=== PATIENT | female | born 1995 | race Caucasian/White ===

== ENCOUNTER 2021-01-02 09:03 | Inpatient (IN) | payer OTHER, SELFPAY ==
[2021-01-02] VITALS (39 sets, daily range): BP systolic 97–131; BP diastolic 57–112; PULSE 68–123; RESP 16–18; TEMP 36.3–37.1; O2SAT 97–100; BMI 25.9
--- NOTE | 2021-01-02 06:28 | WPDHPUPDATE1 ---
History and Physical Update Update Date/Time: 01/02/21 06:28 History and Physical has been reviewed, including an updated exam of the patient. There are NO changes in the patient's condition. Risks, benefits, and alternatives have been discussed and questions answered. Patient agrees to proceed with procedure. 25 yo F presents for IOL at 40weeks. complicated by rubella non-immune, trichomoniasis, and anemia. IOL scheduled for low-dose Pitocin. explained her condition procedure and risks involved including maternal or risk of delivery with risks including but not limited to bleeding infection injury to bladder bowel baby pelvic vessels DVT pneumonia wound infection UTI the risk of anesthesia risk of hemorrhage and risk of shoulder dystocia. She understands accepts and agrees to proceed
--- NOTE | 2021-01-02 06:31 | WPDOBADMIT ---
Obstetrics - Admit Note Admission Note: record reviewed. No pertinent additions to the history and/or any subsequent changes in the physical findings that are not consistent with the expected course of the were found. Additions to the history and/or subsequent changes in the physical findings follow. None. 25 yo F presents for IOL at 40weeks. complicated by rubella non-immune, trichomoniasis, and anemia. IOL scheduled for low-dose Pitocin. explained her condition procedure and risks involved including maternal or risk of delivery with risks including but not limited to bleeding infection injury to bladder bowel baby pelvic vessels DVT pneumonia wound infection UTI the risk of anesthesia risk of hemorrhage and risk of shoulder dystocia. She understands accepts and agrees to proceed
--- NOTE | 2021-01-02 06:31 | PM.IMHP ---
H&P: HPI History of Present Illness Date/Time: 01/02/21 06:31 25 yo F presents for IOL at 40weeks. complicated by rubella non-immune, trichomoniasis, and anemia. IOL scheduled for low-dose Pitocin. explained her condition procedure and risks involved including maternal or risk of delivery with risks including but not limited to bleeding infection injury to bladder bowel baby pelvic vessels DVT pneumonia wound infection UTI the risk of anesthesia risk of hemorrhage and risk of shoulder dystocia. She understands accepts and agrees to proceed Chief Complaint: term , elective induction of labor Review of Systems Review of Systems: All systems reviewed & are unremarkable except as noted in HPI and below Constitutional: Constitutional: Reports no additional constitutional complaints Eyes: Eyes: Reports no additional eye complaints ENT: Reports system reviewed and no additional complaints, except as documented Cardiovascular: Cardiovascular: Reports no additional cardiovascular complaints Respiratory: Respiratory: Reports no additional respiratory complaints Gastrointestinal: Gastrointestinal: Reports no additional gastrointestinal complaints Genitourinary: Genitourinary: Reports no additional female genitourinary complaints Musculoskeletal: Musculoskeletal: Reports no additional musculoskeletal complaints Integumentary/Breasts: Skin/Breast: Reports system reviewed and no additional complaints, except as docu Neurologic: Reports system reviewed and no additional complaints, except as documented Psychiatric: Psychiatric: Reports no additional psychiatric complaints Endocrine: Endocrine: Reports no additional endocrine complaints Hematologic/Lymphatic: Hematologic/Lymphatic: Reports no additional hematologic/lymphatic complaints Allergic/Immunologic: Allergic/Immunologic: Reports no additional allergic/immunologic complaints [facility] Past Medical History Medical History (Updated 01/02/21 @ 06:38 by Dimitri Cooper MD) Bacterial vaginosis Rubella non-immune status, antepartum Term Trichomonal vaginitis Vaginal delivery 02-15-2018, 38.5 wks 1. 7lbs 12oz, Vaginal Vaginal delivery 01-31-2019, 38.1 wks 1. F, 7lbs 3oz, Vaginal Family History Family History (Updated 12/03/20 @ 12:31 by Jina Rasmussen RN) Other Unknown family medical history Social History Social History (Updated 01/02/21 @ 06:39 by Dimitri Cooper MD) Smoking status: Never smoker Alcohol intake: never Substance use: former Substance use type: does not use Living arrangements: with family Occupation/Education: unemployed Gender identity (if verbalized by the patient): Female Sexual Orientation (if Verbalized by the Patient): Straight or Heterosexual Spiritual care concerns: No Agree to blood products: Yes Meds Home Medications and Allergies Home Medications Medication Instructions Recorded Confirmed Type prenat.vits,dann,tvb-gcjm-lipzx 1 tablet PO DAILY 12/03/20 12/03/20 History [ #2] Allergies Allergy/AdvReac Type Severity Reaction Status Date / Time No Known Allergies Allergy Verified 12/03/20 12:30 Exam Const: General: cooperative, healthy appearing, comfortable, no acute distress, well developed, alert, awake and Physically active Nutritional Appearance: average body habitus Orientation/consciousness: patient oriented x3 Limitations: no limitations HENMT: Head: normal to inspection Eyes: General: appearance normal, both eyes and all related structures Neck: Neck: normal visual inspection and full ROM Chest: Chest palpation & inspection: normal inspection of the chest Breast/axilla inspection: normal inspection of the breasts Resp: Effort & Inspection: normal respiratory effort Auscultation: clear to auscultation bilaterally Cardio: Rate: regular rate Rhythm: regular rhythm Heart sounds: S1 normal heart so
--- NOTE | 2021-01-02 09:48 | LDADM ---
This patient, Angie Arreola, was admitted to Labor/Delivery/Recovery 108 on 01/02/21 at 09:03. Plans for labor, pain management and were discussed with patient. Patient/family oriented to hospital policies and general routines including ID bracelet, bed and alarms, visiting hours, pain management, procedures, bathroom and other care routines, personal items, smoking policy, room service/diet and guest tray routines, infant security routines, and visiting hours. Patient/Family are encouraged to report perceived risks to care and to ask questions if they do not understand what they are told or what they should do. See OBIX for further documentation.
[2021-01-02 10:07] LABS: Basophils Percent Auto 0.3 % (0.2-1.2); Eosinophils Absolute Auto 0.1 K/mm3 (0-0.3); Hematocrit 28.5 % (37.0-47.0); Hemoglobin 8.5 g/dL (12.0-15.0); Immature Granulocyte Absolute 0.18 K/mm3 (0.00-0.031); Immature Granulocyte Percent A 2.5 % (0-0.5); Lymphocytes Absolute Auto 1.93 K/mm3 (0.9-3.2); Lymphocytes Percent Auto 26.3 % (18.3-44.2); Mean Corpuscular HGB Conc 29.8 g/dl (32-36); Mean Corpuscular Hemoglobin 21.2 pg (26-34); Mean Corpuscular Volume 71.1 fl (80-100); Mean Platelet Volume 10.6 fl (7.4-10.4); Monocytes Absolute Auto 0.5 K/mm3 (0.1-0.6); Monocytes Percent Auto 6.3 % (2.6-8.5); Neutrophils Absolute Auto 4.7 K/mm3 (1.3-6.7); Neutrophils Percent Auto 63.6 % (45.5-73.1); Nucleated Red Blood Cells Perc 0.5 % (0.0-0.2); Platelet Count Result 216 k/mm3 (150-375); Red Blood Count 4.01 M/mm3 (4.2-5.4); Red Cell Distribution Width 17.6 % (11.5-14.5); White Blood Count 7.3 K/mm3 (4.5-10.0)
[2021-01-02 10:20] LABS: Anisocytosis 1+ (NORMAL); Platelet Estimate Adequate (Adequate)
[2021-01-02 10:21] LABS: Large Platelets Present
[2021-01-02] MEDS: LACTATED RINGERS 1,000 ML 125 ML IV CONT (10:28)
[2021-01-02] MEDS: AMPICILLIN 2 GM/NS 100 ML 2 GM/100 ML BAG IVPB (10:29)
[2021-01-02] MEDS: OXYTOCIN 30 UNITS/NS 500 ML 30 UNITS/500 ML BAG IV CONT (10:31)
--- NOTE | 2021-01-02 11:10 | PM.OBPNLAB ---
Pain Control Date/time seen: 01/02/21 11:10 Pain control: tolerating well Pelvic Exam Dilation (cm): 4 Effacement (%): 70 station: -2 Amniotic membrane status: Ruptured (AROM clear af) Contractions Monitor mode: External Contraction frequency: 4 Contraction duration: 45 Contraction pattern: Regular Contraction phase: Contraction Contraction intensity: Mild Status status: Category l Assessment and Plan Pitocin rate (mU/min): 4 Assessment: induction ongoing Plan: continuous present management Comments: [place]
--- NOTE | 2021-01-02 12:43 | WPDANESEPP ---
Anes - Eval Pre Procedure Procedure: labor epidural Date/Time: 01/02/21 12:43 Surgeon: labor pain Pre Op Diagnosis: IOL Patient Data Age: 25 Gender: F Height: 1.6 m Weight: 66.5 kg Last Vital Signs Temp 36.6 C 01/02/21 11:10 Pulse 97 01/02/21 12:30 Resp 18 01/02/21 11:10 BP 116/69 01/02/21 12:30 Allergies Allergy/AdvReac Type Severity Reaction Status Date / Time No Known Allergies Allergy Verified 01/02/21 09:56 Home Medications Medication Instructions Recorded Confirmed Type prenat.vits,dann,jzr-lqgg-nlxqj 1 tablet PO DAILY 12/03/20 01/02/21 History [ #2] Laboratory Tests 01/02/21 01/02/21 01/02/21 09:31 09:31 09:31 WBC 7.3 K/mm3 K/mm3 (4.5-10.0) RBC 4.01 M/mm3 L M/mm3 (4.2-5.4) Hgb 8.5 g/dL L g/dL (12.0-15.0) Hct 28.5 % L % (37.0-47.0) MCV 71.1 fl L fl (80-100) MCH 21.2 pg L pg (26-34) MCHC 29.8 g/dl L g/dl (32-36) RDW 17.6 % H % (11.5-14.5) Plt Count 216 k/mm3 k/mm3 (150-375) MPV 10.6 fl H fl (7.4-10.4) Immature Gran % (Auto) 2.5 % H % (0-0.5) Neut % (Auto) 63.6 % % (45.5-73.1) Lymph % (Auto) 26.3 % % (18.3-44.2) [place] % (Auto) 6.3 % % (2.6-8.5) Eos % (Auto) 1.0 % % (0-4.4) Baso % (Auto) 0.3 % % (0.2-1.2) Lymph # (Auto) 1.93 K/mm3 K/mm3 (0.9-3.2) [place] # (Auto) 0.5 K/mm3 K/mm3 (0.1-0.6) Eos # (Auto) 0.1 K/mm3 K/mm3 (0-0.3) Baso # (Auto) 0.0 K/mm3 K/mm3 (0.0-0.1) Abs Immat Gran (auto) 0.18 K/mm3 H K/mm3 (0.00-0.031) Absolute Neuts (auto) 4.7 K/mm3 K/mm3 (1.3-6.7) Absolute Nucleated RBC 0.0 K/mm3 K/mm3 (0.0-0.012) Nucleated RBC % 0.5 % H % (0.0-0.2) Platelet Estimate Adequate (Adequate) Large Platelets Present Anisocytosis 1+ (NORMAL) RPR Pending Blood Type AB Positive Antibody Screen Negative Patient hx anesthesia problems: none Family hx anesthesia problems: none PMFSH Past Medical History Medical History (Updated 01/02/21 @ 06:38 by Dimitri Cooper MD) Bacterial vaginosis Rubella non-immune status, antepartum Term Trichomonal vaginitis Vaginal delivery 02-15-2018, 38.5 wks 1. 7lbs 12oz, Vaginal Vaginal delivery 01-31-2019, 38.1 wks 1. F, 7lbs 3oz, Vaginal Family History Family History Other Unknown family medical history Social History Social History (Updated 01/02/21 @ 06:39 by Dimitri Cooper MD) Smoking status: Never smoker Second hand tobacco smoke exposure: No Alcohol intake: never Substance use: former Substance use type: does not use Living arrangements: with family Occupation/Education: unemployed Gender identity (if verbalized by the patient): Female Sexual Orientation (if Verbalized by the Patient): Straight or Heterosexual Spiritual care concerns: No Agree to blood products: Yes Exam Day of Procedure 01/02/21 12:43
[2021-01-02] MEDS: AMPICILLIN 1 GM/NS 50 ML 1 GM/50 ML BAG IVPB (14:58)
--- NOTE | 2021-01-02 15:42 | PM.OBPRVD ---
OB - Delivery Note Procedure Delivery date: 01/02/21 Procedure: Normal spontaneous vertex vaginal delivery a viable female infant and placenta events: Labor Induction Intrapartal events: None Induction method: per pitocin protocol Delivery augmentation: rupture of membranes Delivery monitor: external FHT and external uterine Route of delivery: Episiotomy description: None Laceration Description: None Specimen: Yes (Placenta, cord blood gases, cord blood) Quantitative Blood Loss (ml): 100 Anesthesia type: None Disposition: floor Complications: None Narrative: Normal spontaneous vertex vaginal delivery a viable female over an intact perineum anterior shoulder delivered delivered and placed on to the anterior abdomen spontaneous respirations and cry. Cord clamped and cut handed to the nursery nurse in attendance scores 8 9 weight 8 lb 15 oz taken to the nursery in stable condition. Cord gases cord blood obtained and then placenta was delivered intact with a three-vessel cord the uterus contracted well with Pitocin given intravenously. Cervix and rectum were checked no sponges were left into the vagina the rectal sphincters intact. Blood clots removed from the intrauterine cavity. Mom and baby in stable condition in birthing room 108 Baby Date of : 01/02/21 Time of : 15:30 Weeks of gestation at delivery: 40 Infant gender: Female Weight (pounds): 8 Weight (ounces): 15 presentation: vertex position: Left Occiput Anterior Placenta delivery description: Spontaneous and Normal Configuration cord vessel description: 3 Vessels score one minute: 8 score five minutes: 9 Narrative: Normal exam normal transition taken to the nursery in stable condition
[2021-01-02] MEDS: OXYTOCIN 30 UNITS/NS 500 ML 30 UNITS/500 ML BAG 125 UNITS IV CONT (16:01)
[2021-01-02] MEDS: IBUPROFEN 600 MG TABLET PO (17:54)
--- NOTE | 2021-01-02 19:40 | OBPPTRN ---
Patient transferred to post room #289 via wheelchair. Support person present. Oriented to unit, room, information board, rooming in, admission packet and security measures. Patient verbalizes understanding.
[2021-01-02 19:57] LABS: Barbiturate Screen Urine Negative (Negative); Benzodiazepines Screen Urine Negative (Negative)
[2021-01-02 20:15] LABS: Amphetamine Screen Urine Negative (Negative); Cannabinoid Screen Urine Negative (Negative); Cocaine Screen Urine Negative (Negative); Opiate Screen Urine Negative (Negative); Phencyclidine Screen Urine Negative (Negative)
[2021-01-02 20:16] LABS: Methadone Screen Urine Negative (Negative)
[2021-01-03] MEDS: IBUPROFEN 600 MG TABLET PO ×3 (03:49→17:31)
[2021-01-03 03:54] VITALS: BP 109/65; PULSE 73; RESP 18; TEMP 36.9; O2SAT 98
[2021-01-03 04:54] LABS: Hematocrit 24.9 % (37.0-47.0); Hemoglobin 7.6 g/dL (12.0-15.0)
[2021-01-03] MEDS: MULTIVIT/MIN/PREN/FOL AC/IRON TABLET 1 TAB PO (11:31)
[2021-01-03] MEDS: POLYSACCHARIDE IRON COMPLEX 150 MG CAPSULE PO ×2 (11:32→17:28)
[2021-01-03 11:33] VITALS: BP 118/76; PULSE 85; RESP 12; TEMP 36.7; O2SAT 100
[2021-01-03] MEDS: DOCUSATE SODIUM 100 MG CAPSULE PO (17:27)
--- NOTE | 2021-01-03 18:58 | PM.OBPNVD ---
OB - PN: Subj Subjective Date/time seen: 01/03/21 18:58 Patient comments: no complaints, pain well controlled, tolerating diet and flatus present [place] baby status: doing well and nursing well feeding status: exclusively breast feeding OB - PN: Obj Data Labs CBC & Chem 7: 01/03/21 03:59 Labs: Laboratory Results - last 24 hr 01/02/21 01/03/21 19:17 03:59 Hgb 7.6 L Hct 24.9 L Urine Opiates Screen Negative Urine Methadone Screen Negative Ur Barbiturates Screen Negative Ur Phencyclidine Scrn Negative Ur Amphetamine Screen Negative U Benzodiazepines Scrn Negative Urine Cocaine Screen Negative U Cannabinoids Screen Negative OB - PN A/P Assessment and Plan (1) Term delivered: Code(s): O80 - Encounter for full-term uncomplicated delivery Status: Acute (2) Anemia: Code(s): D64.9 - Anemia, unspecified Status: Acute Plan day: 1 Plan: routine care, discharge home and follow up 6 weeks Time Spent With Patient Time: Total time spent is greater than 50% in coordination of care (as documented) at patient's floor/unit and/or counseling patient: Time with patient: less than 15 minutes Review of Systems Review of Systems: All systems reviewed & are unremarkable except as noted in HPI and below Exam Const: General: comfortable, no acute distress, alert and awake Orientation/consciousness: patient oriented x3 Chest: Breast/axilla inspection: normal inspection of the breasts Resp: Effort & Inspection: normal respiratory effort Cardio: Rate: regular rate GI: GI Palp: Yes Soft to palpation Auscultation: normal bowel sounds : External Female Exam: normal external appearance Psych: Appearance: grossly normal Mental Status: mental status grossly normal Affect: normal affect Attitude: cooperative Thought content: Yes Normal thought content present Judgement: Good judgement present (Psych)
[2021-01-03 19:25] VITALS: BP 108/67; PULSE 67; RESP 18; TEMP 36.8; O2SAT 100
[2021-01-03] MEDS: MEASLES,MUMPS,RUBELLA VACCINE 0.5 ML VIAL SUB-Q (19:54)
--- NOTE | 2021-01-04 06:06 | PC.NURSE ---
01/04/2021 a 0600 Patient viewed the discharge video Mother & Baby Care, The First Two Weeks . Patient was given the opportunity and encouraged to ask questions. Patient verbalized understanding of information shared and has been given the mother/baby guide for home reference.
--- NOTE | 2021-01-04 06:25 | PM.OBDSVD ---
DS: Admitting Diagnosis Admitting Diagnosis Admitting Diagnosis: Term , elective induction of labor DS: Discharge Diagnosis Discharge Diagnosis (1) Term delivered: Code(s): O80 - Encounter for full-term uncomplicated delivery Status: Acute (2) Elective induction of labor planned: Status: Acute (3) Rubella non-immune status, antepartum: Code(s): O99.891 - Other specified diseases and conditions complicating ; Z28.3 - Underimmunization status Status: Acute OB - DS: Summary Hospital Course Time spent discussing smoking cessation with patient: 3 to 10 minutes OB Procedures : Ultrasound OB Procedures Intrapartum: Spontaneous Vag Delivery OB Procedures: : Rubella lg Peripartum Data Infant Delivery Method: Natural Vaginal Laceration Description: None Episiotomy description: None complications: none [place] 1: Gender: Female Disposition of : home Status at Discharge Functional status at discharge: independent ambulation Overall status at discharge: patient is back to baseline Time Spent with Patient Time attestation: Total time spent providing and/or coordinating discharge services: Time spent: Less than 30 minutes Exam Const: General: cooperative, healthy appearing, comfortable, no acute distress, well developed, alert, awake and Physically active HENMT: Head: normal to inspection Eyes: General: appearance normal, both eyes and all related structures Neck: Neck: normal visual inspection Chest: Chest palpation & inspection: normal inspection of the chest Resp: Effort & Inspection: normal respiratory effort Cardio: Rate: regular rate GI: Inspection: normal to inspection : External Female Exam: normal external appearance Bimanual exam- vagina & uterus: non-tender Back/Spine/Pelvis: Back: no CVA tenderness Skin: General skin exam: normal color Neuro: General: patient oriented x3, gait normal, tone normal, moves all extremities and Normal light touch and pain sensation Extrem: General: normal to inspection Psych: Appearance: grossly normal Mental Status: mental status grossly normal Speech and movement: Normal speech and movement present Affect: normal affect Attitude: cooperative Thought process: Normal thought process present Thought content: Yes Normal thought content present Insight: Good insight present (Psych) Judgement: Good judgement present (Psych) DS: Data Data Completed and Pending Labs on day of discharge: Labs from last 24 hours 01/02/21 01/02/21 01/02/21 09:31 09:31 09:31 WBC 7.3 RBC 4.01 L Hgb 8.5 L Hct 28.5 L MCV 71.1 L MCH 21.2 L MCHC 29.8 L RDW 17.6 H Plt Count 216 MPV 10.6 H Immature Gran % (Auto) 2.5 H Neut % (Auto) 63.6 Lymph % (Auto) 26.3 [place] % (Auto) 6.3 Eos % (Auto) 1.0 Baso % (Auto) 0.3 Lymph # (Auto) 1.93 [place] # (Auto) 0.5 Eos # (Auto) 0.1 Baso # (Auto) 0.0 Abs Immat Gran (auto) 0.18 H Absolute Neuts (auto) 4.7 Absolute Nucleated RBC 0.0 Nucleated RBC % 0.5 H Platelet Estimate Adequate Large Platelets Present Anisocytosis 1+ RPR Pending Blood Type AB Positive Antibody Screen Negative Discharge Plan Discharge Attending physician on discharge: Dimitri Cooper Discharging Clinician: Dimitri Cooper Anticipated Discharge Date/Time: 01/04/21 06:24 Patient Disposition: Home, Self-Care Activity: may shower, unlimited and may drive after 2 weeks Diet: as tolerated and regular Discharge Instructions: Routine Patient Instructions: Antibiotic Form Stand Alone Forms: General Discharge Information Follow-up/Referrals: Dimitri Cooper MD [Physician] - 3 Weeks Discharge Medications: New polysaccharide iron complex 150 mg iron Capsule 150 mg PO BIDWM Qty: 120 RF: 3 ibuprofen 600 mg Tablet 600 mg PO Q6H Qty: 90 RF:
[2021-01-04] MEDS: MULTIVIT/MIN/PREN/FOL AC/IRON TABLET 1 TAB PO (08:37)
[2021-01-04] MEDS: POLYSACCHARIDE IRON COMPLEX 150 MG CAPSULE PO ×2 (08:37→15:25)
[2021-01-04] MEDS: IBUPROFEN 600 MG TABLET PO ×2 (08:38→15:24)
[2021-01-04 09:37] VITALS: BP 118/74; PULSE 62; RESP 12; TEMP 37.6; O2SAT 100
[2021-01-04 15:29] VITALS: BP 121/69; PULSE 90; RESP 12; TEMP 39.3; O2SAT 100
[2021-01-04 16:13] VITALS: TEMP 39.3
[2021-01-04] MEDS: ACETAMINOPHEN 325 MG TABLET 650 MG PO (16:13)
[2021-01-04] MEDS: diphenhydrAMINE HCl CAP 25 MG CAPSULE 50 MG PO (16:15)
--- NOTE | 2021-01-04 19:13 | PC.NURSE ---
[id number] Dr. Cooper will send script of Carlos Aryl to pts Pharmacy, have pt take OTC Tylenol 650mg PO Q6 hours till feeling better from vaccine reaction. These instructions were added to the D/C instruction packet. The pt V/U'd.
[2021-01-05 08:01] LABS: Rapid Plasma Reagin Non-Reactive (NonReactive)
[2021-01-07 11:07] VITALS: BP 119/70; PULSE 108; RESP 20; TEMP 39.4; O2SAT 99
== END 2021-01-04 18:40 | disposition home or self-care (01) | DRG 560 ==
LOC: ANHLDR 15:53 → ANHOB2 20:04
PROVIDERS: Admitting Provider Obstetrics & Gynecology; PCP Physician Assistant; Visit Provider Obstetrics & Gynecology
DX: O99.02 Anemia complicating childbirth (principal); Z37.0 Single live birth; Z3A.40 40 weeks gestation of pregnancy; D64.9 Anemia, unspecified
CPT/HCPCS: 36415; 80307; 85014; 85018; 85025; 86592; 86850; 86900; 86901; 88307; 90710; A9270; J0290; J2590; J2795; J7120

== ENCOUNTER 2021-01-07 12:48 | Emergency (ER) | payer OTHER, SELFPAY ==
--- NOTE | ~2021-01-07 | CT_ITS ---
EXAMINATION: CT abdomen pelvis w con DATE: 01/07/2021 14:12 INDICATION: Right lower quadrant abdominal pain. TECHNIQUE: Computed tomography (CT) of the abdomen and pelvis was performed with 100 mL Omnipaque 350 intravenous contrast. Automated exposure control and iterative reconstruction technique were employe d. The dose-length product was 382.25 mGy-cm. COMPARISON: None. FINDINGS: The visualized portions of the lung bases are clear without pneumonia or pleural effusion. The heart size is normal. No pericardial effusion. The liver, gallbladder, spleen, pancreas, adrenal glands, and right kidney are normal. There is a 3 mm stone in left kidney. The uterus is enlarged, co nsistent with recent . The endometrial complex measures up to 17 mm in thickness. There are no dilated loops of bowel. The visualized portion of the appendix is normal. There are no pathologica lly enlarged lymph nodes. There is a small volume of ascites in the pelvis and right abdomen. Right o varian vein is enlarged and relatively low attenuation compared to surrounding collateral veins, cons istent with ovarian vein thrombosis. The bones are unremarkable. IMPRESSION: 1. Right ovarian vein thrombosis. 2. Endometrial complex thickness of 17 mm. Retained products of conception cannot be excluded. 3. Small volume of ascites in the right abdomen and pelvis. Reviewed, dictated and finalized at location A. IMPRESSION: 1. Right ovarian vein thrombosis. 2. Endometrial complex thickness of 17 mm. Retained products of conception nicko ot be excluded. 3. Small volume of ascites in the right abdomen and pelvis.
--- NOTE | ~2021-01-07 | US_ITS ---
EXAMINATION: US pelvic complete DATE: 01/07/2021 15:17 INDICATION: Right lower quadrant abdominal pain. Fever. TECHNIQUE: Multiple transabdominal sonographic images of the pelvis were obtained. COMPARISON: CT abdomen and pelvis 01/07/2021 FINDINGS: The uterus measures 15.6 x 9.1 x 9.1 cm. There is no free fluid in the pelvis. The endometrial comple x measures 3.5 cm in thickness with internal vascular flow. The right ovary measures 5.0 x 5.0 x 8.4 cm. The left ovary measures 3.6 x 3.7 x 3.4 cm. There is normal vascular flow in the ovaries. IMPRESSION: 1. Thickened endometrial complex with internal vascular flow, consistent with retained products of co nception. 2. Enlarged right ovary. Vascular flow present. Reviewed, dictated and finalized at location A. IMPRESSION: 1. Thickened endometrial complex with internal vascular flow, consistent with r etained products of conception. 2. Enlarged right ovary. Vascular flow present.
--- NOTE | 2021-01-07 13:05 | ECG_ITS ---
Measurements Intervals [place] Rate: 108 P: 114 [place]: 106 QRS: 118 QRSD: 86 T: 142 QT: 306 QTc: 412 Interpretive Statements SINUS TACHYCARDIA LIMB LEAD REVERSAL BASELINE ARTIFACT- V4-V6 ABNORMAL ECG Electronically Signed On 01-07-2021 15:49:46 CDT by Umesh Sal D.O.
[2021-01-07 13:06] VITALS: BP 121/78; PULSE 109; RESP 24; TEMP 38.3; O2SAT 97
[2021-01-07 13:30] LABS: Basophils Absolute Auto 0.1 K/mm3 (0.0-0.1); Basophils Percent Auto 0.3 % (0.2-1.2); Eosinophils Percent Auto 0.2 % (0-4.4); Immature Granulocyte Absolute 0.69 K/mm3 (0.00-0.031); Immature Granulocyte Percent A 4.2 % (0-0.5); Lymphocytes Absolute Auto 1.71 K/mm3 (0.9-3.2); Lymphocytes Percent Auto 10.4 % (18.3-44.2); Mean Corpuscular Hemoglobin 20.9 pg (26-34); Mean Corpuscular Volume 67.3 fl (80-100); Monocytes Absolute Auto 1.2 K/mm3 (0.1-0.6); Monocytes Percent Auto 7.3 % (2.6-8.5); Neutrophils Absolute Auto 12.7 K/mm3 (1.3-6.7); Neutrophils Percent Auto 77.6 % (45.5-73.1); Nucleated Red Blood Cells Perc 0.1 % (0.0-0.2); Platelet Count Result 213 k/mm3 (150-375); Red Blood Count 4.31 M/mm3 (4.2-5.4); Red Cell Distribution Width 19.1 % (11.5-14.5); White Blood Count 16.4 K/mm3 (4.5-10.0)
[2021-01-07] MEDS: SODIUM CHLORIDE 0.9% IV 1,000 ML 999 ML IV CONT (13:32)
[2021-01-07] MEDS: MORPHINE SULFATE (*CRX) 4 MG/ML INJ IV PUSH ×2 (13:32→17:33)
[2021-01-07 13:38] LABS: Lactic Acid Reflex 0.8 mmol/L (0.7-2.1)
[2021-01-07 13:39] LABS: Partial Thromboplastin Time 22.8 SECONDS (22.3-36.8); Prothrombin Time 13.5 Seconds (11.1-14.7)
[2021-01-07 13:44] LABS: Alanine Aminotransferase 54 U/L (4-35); Albumin Level 3.4 g/dL (3.5-5.1); Alkaline Phosphatase 204 U/L (38-126); Anion Gap 6 mmol/L (8-16); Aspartate Amino Transferase 36 U/L (14-36); Bilirubin,Total 0.4 mg/dL (0.2-1.3); Blood Urea Nitrogen 13 mg/dL (7-17); Calcium 8.4 mg/dL (8.4-10.2); Carbon Dioxide 23 mmol/L (22-30); Chloride 105 mmol/L (98-107); Estimated CRCL calculation 121 ml/min; Estimated Glomerular Filt Rate > 60; Glucose 89 mg/dL (65-105); Lipase 52 U/L (23-300); Potassium 3.7 mmol/L (3.4-5.0); Sodium 134 mmol/L (137-145)
--- NOTE | 2021-01-07 13:53 | PC.NURSE ---
Pt unable to provide urine sample at this time, requesting more time to try. Declined straight cath. Fluids infusing.
[2021-01-07 13:56] LABS: CRP 14.8 mg/dL (<1.0)
--- NOTE | 2021-01-07 14:14 | PC.NURSE ---
Pt to CT scan via stretcher.
[2021-01-07 14:16] VITALS: BP 115/71; PULSE 99; RESP 17; O2SAT 100
[2021-01-07 14:48] LABS: Add Urine Microscopic? YES; Appearance Urine Clear (Clear); Bilirubin Urine Negative (Negative); Blood Urine 2+ (Negative); Color Urine Yellow (Yellow); Glucose Urine UA Negative (Negative); Ketones Urine Negative (Negative); Leukocyte Esterase Ur Trace LEU/UL (Negative); Mucus Urine Rare /lpf; Nitrate Urine Negative (Negative); Protein Urine 1+ mg/dL (Negative); RBC Urine 0-2 /hpf (0-2); Specific Grav Ur 1.021 (1.001-1.035); Urobilinogen Urine Negative mg/dL (<2.0)
[2021-01-07 15:26] VITALS: BP 126/74; PULSE 93; RESP 20; TEMP 38.9; O2SAT 98
[2021-01-07 15:28] LABS: Beta HCG Quantitative 93.78 mIU/ML
--- NOTE | 2021-01-07 16:01 | ED.FEVER ---
HPI - Fever General Chief Complaint: Fever Stated Complaint: fever, abdominal, 5 days post Time Seen by Provider: 01/07/21 12:57 History of Present Illness HPI Narrative: Patient is a 25-year-old female who presents ER with lower abdominal pain and fever. Reports she has been having fever since receiving an MMR vaccination during her delivery 5 days ago. Over the last couple days she has developed significant tenderness in her right lower quadrant and it radiates to her back. No change in her lochia. She reports is without foul odor. She passed 1 golf ball size clots today otherwise she feels like her bleeding has been minimal. Denies urinary frequency urgency or dysuria. She is without sinus congestion/sore throat/productive cough. Has had decreased appetite due to feeling ill. Patient's was also complicated by anemia. Related Data Home Medications Medication Instructions Recorded Confirmed prenat.vits,dann,ynm-mpni-awime 1 tablet PO DAILY 12/03/20 01/02/21 Allergies Allergy/AdvReac Type Severity Reaction Status Date / Time No Known Allergies Allergy Verified 01/07/21 13:18 Review of Systems Review of Systems: All systems reviewed & are unremarkable except as noted in HPI and below Constitutional: Constitutional: Reports chills, Reports fatigue and Reports fever(s) ENT: Denies nasal congestion and Denies sore throat Cardiovascular: Cardiovascular: Denies chest pain and Denies radiating jaw, neck or arm pain Respiratory: Respiratory: Denies cough and Denies dyspnea Gastrointestinal: Gastrointestinal: Reports abdominal pain, Denies diarrhea, Denies nausea and Denies vomiting Genitourinary: Genitourinary: Denies abnormal vaginal bleeding, Denies nocturia, Denies dysuria and Reports flank pain PMFSH Past Medical History Medical History (Updated 01/07/21 @ 21:17 by Ignacio Bello MD) Anemia Bacterial vaginosis Rubella non-immune status, antepartum Term Trichomonal vaginitis Vaginal delivery 02-15-2018, 38.5 wks 1. 7lbs 12oz, Vaginal Vaginal delivery 01-31-2019, 38.1 wks 1. F, 7lbs 3oz, Vaginal Surgical History Surgical History (Updated 01/07/21 @ 16:04 by Ignacio Bello MD) No pertinent past surgical history Family History Family History Other Unknown family medical history Social History Social History (Updated 01/02/21 @ 06:39 by Dimitri Cooper MD) Smoking status: Never smoker Second hand tobacco smoke exposure: No Alcohol intake: never Substance use: former Substance use type: does not use Gender identity (if verbalized by the patient): Female Spiritual care concerns: No Agree to blood products: Yes Exam Narrative: Exam Narrative: GENERAL: ill-appearing, well-nourished, and in no acute distress. HEAD: Normocephalic, atraumatic. EYES: PERRL and EOMI. CHEST: Clear to auscultation. No respiratory distress. HEART: Tachycardic and regular. Normal peripheral pulses. ABDOMEN: Soft, tender palpation right lower quadrant with guarding, nondistended. : Normal external exam. Mucous like material coming from cervical os w/o hemorrhage. No cervical tenderness. EXTREMITIES: Normal range of motion. No edema. SKIN: Warm, dry, no rash. NEURO: Alert and oriented x3. PSYCH: Normal mood and affect. Course Reevaluation(s) Reevaluation #1: Discussed case with patient's OB. He feels since patient has signs of infection and has a pelvic vein thrombosis she would benefit from higher level [facility] at [facility]. He is concerned due to the fact that she is quite anemic and receiving heparin could cause numerous issues. She is also concerned that if he were to perform a D&C before she is anticoagulated she could end up having a lethal pulmonary embolism. Date: 01/07/21 Time: 16:08 Reevaluation #2: Discussed with [place]. Accepted by Dr. Melvin for Dr. Hawk. Request patient
[2021-01-07 16:20] VITALS: BP 128/84; PULSE 97; RESP 20; O2SAT 99
[2021-01-07] MEDS: CLINDAMYCIN 900 MG/D5W 50 ML 900 MG/50 ML PIGGYBACK 50 MG IVPB (16:21)
[2021-01-07 17:15] VITALS: BP 120/79; PULSE 114; RESP 15; TEMP 38.7; O2SAT 100
[2021-01-07] MEDS: IBUPROFEN 600 MG TABLET PO (17:33)
[2021-01-07] MEDS: ENOXAPARIN 80 MG/0.8 ML SYRINGE 64 MG SUB-Q (17:34)
[2021-01-07 18:40] VITALS: BP 110/70; PULSE 93; RESP 21; O2SAT 97
== END 2021-01-07 19:56 | disposition short-term general hospital (02) ==
PROVIDERS: Emergency Provider Emergency Medicine; PCP Physician Assistant
DX: O72.2 Delayed and secondary postpartum hemorrhage (principal); O99.43 Diseases of the circulatory system complicating the puerperium; I82.890 Acute embolism and thrombosis of other specified veins
CPT/HCPCS: 36415; 74177; 76856; 80053; 81001; 83605; 83690; 84702; 85025; 85610; 85730; 86140; 87040; 87070; 87077; 87491; 87591; 87808; 93005; 96361; 96365; 96367; 96372; 96375; 96376; 99285; A9270; J1650; J2270; J2543; J7030; Q9967